=== PATIENT | female | born 1965 | race Caucasian/White ===

== ENCOUNTER 2016-06-26 07:08 | Observation (INO) | payer OTHER ==
[2016-06-26] MEDS ORDERED: NS 1,000 ML IV ONE (07:11)
[2016-06-26 07:45] LABS: % IMMATURE GRANULYOCYTES 0.3 % (0.0-1.1); ABSOLUTE IMMATURE GRANULOCYTES 0.02 10^3/uL (0.00-0.10); ADD DIFF? NO; ADD MORPH? NO; ADD SCAN? NO; ATYPICAL LYMPHOCYTE FLAG 10 (0-99); FRAGMENT RBC FLAG 0 (0-99); HEMATOCRIT 42.7 % (38.0-47.0); HEMOGLOBIN 15.1 g/dL (12.6-16.3); LEFT SHIFT FLG 0 (0-99); LIPEMIA HEMOLYSIS FLAG 90 (0-99); MEAN CELL HEMOGLOBIN CONCENTR. 35.4 g/dL (32.4-36.7); MEAN CELL VOLUME 98.8 fL (81.5-99.8); PLATELET CLUMPS FLAG 30 (0-99); PLATELET COUNT 233 10^3/uL (150-400); RED BLOOD CELL COUNT 4.32 10^6/uL (4.18-5.33); RED CELL DISTRIBUTION WIDTH 11.8 % (11.5-15.2)
--- NOTE | 2016-06-26 07:46 | CPEKG ---
Heart Rate: 73 RR Interval: 822 P-R Interval: 160 QRSD Interval: 104 QT Interval: 400 QTC Interval: 441 P [place]: 7 QRS [place]: 82 T Wave [place]: -16 EKG Severity - ABNORMAL ECG - EKG Impression: SINUS RHYTHM EKG Impression: ABNORMAL T, CONSIDER ISCHEMIA, ANTERIOR LEADS Electronically Signed By: Denton Hassan 26-Jun-2016 18:12:11
[2016-06-26 07:59] LABS: INR 0.98 (0.83-1.16); PROTIME(PATIENT) 12.9 SEC (12.0-15.0)
[2016-06-26 08:00] LABS: APTT 25.7 SEC (23.0-38.0)
[2016-06-26] MEDS ORDERED: BUPIVACAINE 0.5% 30 ML SDV ONE (08:11)
[2016-06-26] MEDS ORDERED: HEPARIN 10,000 UNIT/10 ML MDV ONE (08:11)
[2016-06-26] MEDS ORDERED: ISOPROTERENOL HCL 0.2 MG/ML 5ML AMP ONE (08:11)
[2016-06-26] MEDS ORDERED: LIDOCAINE 1% 30 ML SDV ONE (08:11)
[2016-06-26 08:21] LABS: ANION GAP 12 mEq/L (8-16); CALCIUM 9.4 mg/dL (8.5-10.4); CARBON DIOXIDE 22 mEq/l (22-31); CHLORIDE 110 mEq/L (97-110); CREATININE 0.9 mg/dL (0.6-1.0); GLOMERULAR FILTRATION RATE > 60; GLUCOSE 95 mg/dL (70-100); POTASSIUM 4.8 mEq/L (3.5-5.2); SODIUM 144 mEq/L (134-144)
[2016-06-26] MEDS ORDERED: MIDAZOLAM 2 MG/2 ML VIAL ONE (08:36)
[2016-06-26] MEDS ORDERED: fentaNYL 250 MCG/5 ML INJ ONE (08:37)
[2016-06-26] MEDS ORDERED: PROPOFOL/EMULSION 500 MG/50 ML BOTTLE IV ONE (08:37)
[2016-06-26] MEDS ORDERED: REMIFENTANIL HCL 1 MG VIAL ONE (08:43)
[2016-06-26] MEDS ORDERED: DEXAMETHASONE 4 MG/ML VIAL ONE (10:00)
[2016-06-26] MEDS ORDERED: PHENYLEPHRINE HCL 100 MCG/ML SYR ONE ×2 (10:00→10:51)
[2016-06-26] MEDS ORDERED: ROCURONIUM 50 MG/5 ML VIAL ONE ×3 (10:00→12:27)
[2016-06-26] MEDS ORDERED: PROPOFOL 200 MG/20 ML VIAL ONE (12:03)
[2016-06-26] MEDS ORDERED: ONDANSETRON 4 MG/2 ML VIAL IVP PRN (13:55)
[2016-06-26] MEDS ORDERED: ACETAMINOPHEN 325 MG TAB PO PRN (13:55)
[2016-06-26] MEDS ORDERED: IBUPROFEN 200 MG TAB PO PRN (13:56)
[2016-06-26] MEDS ORDERED: FAMOTIDINE 20 MG/NACL/50 ML BAG IV ONE (14:22)
[2016-06-26] MEDS ORDERED: FUROSEMIDE 20 MG/2 ML VIAL ONE (15:13)
[2016-06-26] MEDS ORDERED: FUROSEMIDE 40 MG/4 ML VIAL IVP ONE (15:30)
--- NOTE | 2016-06-26 15:53 | ECHO ---
[id number] + + [address] : : [place] [address] : : [phone] + Adult Echocardiographic Report + ----+ :Name: JESSE ROJAS Date: 06/26/2016 02:58 PM : : Hospital Admission Number: [id number] Location: [facility]: :: 1965 Gender: Female : :Age: 51 yrs Race: WH : :Reason For Study: Eval for Pericardial effusion and TR : + ----+ Doppler Measurements & Calculations TR max jenn: 398.2 cm/sec TR max P.4 mmHg Right Ventricle The right ventricle is moderate to severely dilated. The right ventricular systolic function is moderately reduced. Atria The right atrium is moderately dilated. Tricuspid Valve The tricuspid valve is normal in structure and function. There is moderate tricuspid regurgitation. Pericardium/Pleural There is no pericardial effusion. There is a fat pad seen. Conclusion This is a limited study to eval for pericardial effusion and TR. Limited views of the LV suggest normal systolic function The right ventricle is moderate to severely dilated. Moderately reduced RV systolic function The right atrium is moderately dilated. There is moderate tricuspid regurgitation. Moderate to severe pulmonary HTN, estimated at 64 mmHg plus RA pressure There is no pericardial effusion. No prior echo Final Reading Physician: Dr Allison Jara electronically signed on 06/26/2016 03:52 PM Ordering Physician: Alonzo Sparrow Performed By: Sherry Barrera
--- NOTE | 2016-06-26 16:14 | EPPROC ---
Electrophysiology Procedure Note: ELECTROPHYSIOLOGIC STUDY AND CATHETER MEDIATED ABLATION OF SLOW/FAST AV JOSE ENRIQUE REENTRY TACHYCARDIA PROCEDURES PERFORMED: 54157-47 EP evaluation with RA/RV/LA pace/record, with arrhythmia induction 23182-18 EP evaluation with RA/RV pace record, insert/reposition catheter, with arrhythmia induction 03713 Intracardiac catheter ablation, SVT arrhythmogenic focus 50532 3D mapping Fluoroscopy INDICATION: This is a 51 yr old female with episodes of SVT with which she was very symptomatic and had to go to the ER in [place] where she was converted with Adenosine. 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 Pt was offered medical management vs ablation. She chose to undergo Rf ablation for her SVT and hence the procedure was undertaken. PROCEDURE: Catheters & Anesthesia: The patient arrived in the Electrophysiology Laboratory in the fasting state. The right clavicular region, right groin, and left groin area were prepped and draped in the usual sterile manner. Anesthesiologist administered general anesthesia. Appropriate non-invasive blood pressure, pulse oximetry and end- tidal CO2 monitoring was established. All catheters were placed percutaneously using the modified Seldinger technique , and advanced into position under fluoroscopic guidance. One CRD2 catheter was advanced to the His-bundle position via the right femoral vein. . One #7 Green[place]ic deflectable catheter with 10 pairs of electrodes was placed via the right femoral vein into the coronary sinus. Heparin was given AVNRT was induced easily during rapid pacing. Ventricular extrastimuli delivered during tachycardia without altering antegrade His bundle activation did not advance next atrial potential, indicating that the tachycardia was not utilizing an accessory pathway for retrograde conduction. VA interval was -10 ms. Post entrainment of the tachycardia from the ventricle, there was VAHV response. VAV - TCL was 180ms Mapping of the right atrium and coronary sinus during AVNRT identified earliest atrial activation above the tendon of Priya at a level slightly posterior to the level of the His bundle, consistent with retrograde conduction over the fast AV jose enrique pathway. A #8 Green[place]ic deflectable quadrapolar electrode catheter (2mm-5mm-2mm spacing) with 4 mm tip electrode and sensor for the 3D mapping Carto system was advanced to the right atrium. 3 D mapping of the inter-atrial septum and coronary sinus was performed and location of the AV node was marked. RF applications were delivered to the region between the tricuspid annulus and the coronary sinus ostium, at the level of the upper edge of the coronary sinus ostium. Later lesions were given after advancing the catheter using SL3, SL2 and then Agilis sheath. Later the catheter was changed to Cryocath and further lesions were given. Intermittently induciton was attempted and we could induce AT at rates of 440ms and rapid AT at 310ms. However, with these her original SVT was not induced. Radiofrequency applications and cryo lesions were administered from within CS, roof of CS all the way to 1 mm below the His. A line from CS os to IVC was also created. Junctional rhythm occurred during many of the RF applications. The catheters were removed. The long sheath was changed to a short 9 Fr sheath. The patient was transferred to the cardiovascular holding area in stable condition. Vascular access sheaths were removed in the holding area. There were no apparent complications. Results: SCL 760ms AVWB 380ms TCL 360ms VA during SVT -10ms VA during SR 140ms CONCLUSIONS * AV jose enrique reentrant tachycardia using the slow AV jose enrique pathway for antegrade conduction and the fast AV jose enrique pathway for retrograde conduction. (Slow/fast AVNRT). * Ablation of the slow AV jose enrique pathway using RF and Cryocatheter. Multiple long sheaths were used for better support. * Multiple AT inducible ?due to RV dilatation and scarring in the RA/RV * No complications.
[2016-06-26 16:42] LABS: ANION GAP 10 mEq/L (8-16); CALCIUM 8.6 mg/dL (8.5-10.4); CARBON DIOXIDE 24 mEq/l (22-31); CHLORIDE 109 mEq/L (97-110); CREATININE 0.9 mg/dL (0.6-1.0); GLOMERULAR FILTRATION RATE > 60; GLUCOSE 131 mg/dL (70-100); MAGNESIUM 1.8 mg/dL (1.6-2.3); POTASSIUM 5.8 mEq/L (3.5-5.2); SODIUM 143 mEq/L (134-144)
[2016-06-26] MEDS: OXYCODONE/APAP 5/325 TAB PO PRN ×3 (17:20→22:12)
[2016-06-27] MEDS: OXYCODONE/APAP 5/325 TAB PO PRN ×2 (02:31→13:25)
[2016-06-27 04:58] LABS: % IMMATURE GRANULYOCYTES 0.3 % (0.0-1.1); ABSOLUTE IMMATURE GRANULOCYTES 0.03 10^3/uL (0.00-0.10); ADD DIFF? NO; ADD MORPH? NO; ADD SCAN? NO; ATYPICAL LYMPHOCYTE FLAG 0 (0-99); FRAGMENT RBC FLAG 0 (0-99); HEMATOCRIT 36.7 % (38.0-47.0); HEMOGLOBIN 12.7 g/dL (12.6-16.3); LEFT SHIFT FLG 0 (0-99); LIPEMIA HEMOLYSIS FLAG 90 (0-99); MEAN CELL HEMOGLOBIN 35.4 pg (27.9-34.1); MEAN CELL HEMOGLOBIN CONCENTR. 34.6 g/dL (32.4-36.7); MEAN CELL VOLUME 102.2 fL (81.5-99.8); MEAN PLATELET VOLUME 10.3 fL (8.7-11.7); PLATELET CLUMPS FLAG 10 (0-99); PLATELET COUNT 184 10^3/uL (150-400); RED BLOOD CELL COUNT 3.59 10^6/uL (4.18-5.33); RED CELL DISTRIBUTION WIDTH 11.9 % (11.5-15.2)
[2016-06-27 05:02] LABS: INR 1.09 (0.83-1.16)
[2016-06-27 05:16] LABS: ANION GAP 6 mEq/L (8-16); CALCIUM 8.9 mg/dL (8.5-10.4); CARBON DIOXIDE 27 mEq/l (22-31); CHLORIDE 105 mEq/L (97-110); CREATININE 1.1 mg/dL (0.6-1.0); GLOMERULAR FILTRATION RATE 52; GLUCOSE 119 mg/dL (70-100); POTASSIUM 5.5 mEq/L (3.5-5.2); SODIUM 138 mEq/L (134-144)
[2016-06-27 05:23] LABS: TROPONIN I 0.532 ng/mL (0-0.034)
[2016-06-27 05:25] LABS: CK-MB INTERPRETATION NEGATIVE (NEGATIVE); CREATINE KINASE-MB FRACTION 3.92 ng/mL (0-3.19)
[2016-06-27] MEDS ORDERED: lamoTRIgine 100 MG TAB PO SCH (09:00)
[2016-06-27] MEDS ORDERED: NON-FORMULARY NEW DRUG (Multivitamin With Minerals [Multiple Vitamin] 1 EACH) PO SCH (09:00)
[2016-06-27] MEDS ORDERED: LOSARTAN POTASSIUM 50 MG TAB PO SCH (09:00)
[2016-06-27] MEDS ORDERED: NON-FORMULARY NEW DRUG (Losartan Potassium [Cozaar] 100 MG) PO SCH (09:00)
[2016-06-27] MEDS ORDERED: MULTIVITAMINS W-MINERALS 1 EACH TAB PO SCH (09:00)
[2016-06-27] MEDS ORDERED: ASPIRIN 325 MG TAB PO SCH (09:00)
[2016-06-27] MEDS ORDERED: TORSEMIDE 20 MG TAB PO SCH (09:00)
--- NOTE | 2016-06-27 09:19 | CPEKG ---
Heart Rate: 72 RR Interval: 833 P-R Interval: 168 QRSD Interval: 94 QT Interval: 400 QTC Interval: 438 P [place]: 71 QRS [place]: 92 T Wave [place]: -21 EKG Severity - OTHERWISE NORMAL ECG - EKG Impression: SINUS RHYTHM EKG Impression: BORDERLINE RIGHT AXIS DEVIATION Electronically Signed By: Denton Hassan 27-Jun-2016 19:21:08
--- NOTE | 2016-06-27 10:53 | ECHO ---
[id number] [id number] + + [address] : : [place] [address] : : [phone] + + Adult Echocardiographic Report + ----+ :Name: JESSE ROJASudy Date: 06/27/2016 07:52 AM : : Hospital Admission Number: [id number] Location: 216: :: 1965 Gender: Female Height: 69 in : :Age: 51 yrs Race: WH Weight: 201 lb : :Reason For Study: Post EP : : BSA: 2.1 meters2 : + ----+ MMode/2D Measurements & Calculations IVSd: 1.1 cm RVDd: 5.3 cm FS: 40.8 % LVOT diam: 1.9 cm LVPWd: 0.96 cm LVIDd: 5.3 cm EDV(Teich): 133.6 ml LVOT area: 2.8 cm2 LVIDs: 3.1 cm ESV(Teich): 38.6 ml EF(Teich): 71.1 % Normal Measurement Values: + + :LVIDd (3.5-5.7cm) IVSd (0.6-1.1cm) LVPWd (0.6-1.1cm) Aortic Root (2.0-3.7cm)Left Atrium (1.5-4.0cm): :LV Vol(d) (76-115ml) LV Vol(s) (29-48ml) Ejec Fraction (50-65%)PV Clark (0.6- 1.2m/s) TV Clark (0.4-1.0m/s) : :MV E Clark (0.8-1.0m/s)MV A Clark (0.3-1.0m/s)LVOT Clark (0.7-1.2m/s) Asc Ao Clark ( 0.9-1.8m/s) : + + Doppler Measurements & Calculations MV E max clark: MV V2 max: Ao V2 max: LV V1 mean P.9 cm/sec 78.2 cm/sec 115.1 cm/sec 1.7 mmHg MV A max clark: MV max PG: Ao max P.3 mmHg LV V1 mean: 70.1 cm/sec 2.4 mmHg Ao mean P.8 mmHg60.1 cm/sec MV E/A: 0.65 MV V2 mean: Ao V2 mean: LV V1 VTI: 18.0 cm MV dec time: 43.9 cm/sec 104.8 cm/sec 0.29 sec MV mean PG: Ao V2 VTI: 28.4 cm 0.87 mmHg KATHARINE(I,D): 1.8 cm2 MV V2 VTI: 22.1 cm MVA(VTI): 2.3 cm2 SV(LVOT): 50.0 ml PA V2 max: PI end-d clark: TR max clark: 82.7 cm/sec 147.6 cm/sec 401.2 cm/sec PA max PG: TR max P.7 mmHg 64.4 mmHg RAP systole: 10.0 mmHg RVSP(TR): 74.4 mmHg Left Ventricle The left ventricle is normal in size and function. There is normal left ventricular wall thickness. Ejection Fraction = 60-65%. There is Doppler evidence for diastolic dysfunction. Flattened septum is consistent with RV pressure/volume overload. Right Ventricle The right ventricle is moderate to severely dilated. The right ventricular systolic function is moderately reduced. Atria The left atrial size is normal. The right atrium is moderately dilated. Mitral Valve The mitral valve is normal in structure and function. There is no mitral valve stenosis. There is trace mitral regurgitation. Tricuspid Valve The tricuspid valve is normal in structure and function. There is no tricuspid stenosis. There is moderate to severe tricuspid regurgitation. Right ventricular systolic pressure is 74.4mmHg. There is Doppler evidence for severe pulmonary hypertension. Aortic Valve The aortic valve is normal in structure and function. There is no aortic stenosis. Trace aortic regurgitation. Pulmonic Valve The pulmonic valve is normal in structure and function. There is no pulmonic valvular stenosis. Mild to moderate pulmonic valvular regurgitation. Great Vessels The aortic root is normal size. Pericardium/Pleural There is no pericardial effusion. There is a fat pad seen. Conclusion A complete two-dimensional transthoracic echocardiogram was performed (2D, M-mode, Doppler and color flow Doppler). The left ventricle is normal in size and function. Ejection Fraction = 60-65%. There is Doppler evidence for diastolic dysfunction. Flattened septum is consistent with RV pressure/volume overload. The right ventricle is moderate to severely dilated. Moderately reduced RV systolic function The right atrium is moderately dilated. There is trace mitral regurgitation. There is moderate to severe tricuspid regurgitation. Right ventricular systolic pressure is 74.4mmHg. There is Doppler evidence for severe pulmonary hypertension. The aortic valve is normal in structure and function. Trace aortic regurgitation. Mild to moderate pulmonic valvular regurgitation. There is no pericardial effusion. Final Reading Physician: Dr Allison Jara electronically signed on 06/27/2016 10:52 AM Ordering Physician: Alonzo Sparrow Performed By: Sherry Barrera
[2016-06-27 11:17] VITALS: PULSE 62; RESP 16; TEMP 97.6; O2SAT 96
[2016-06-27] MEDS ORDERED: PNEUMOCOCCAL 0.5ML VACCINE VIAL IM ONE (11:19)
[2016-06-27] MEDS ORDERED: FLU VACC QS 2016-17(3-64YR)/PF 0.5 ML SYR (FLUARIX QUAD) IM ONE (11:19)
[2016-06-27] MEDS ORDERED: FUROSEMIDE 20 MG/2 ML VIAL IVP ONE (11:40)
[2016-06-27 12:01] VITALS: BP 119/72
--- NOTE | 2016-06-27 18:40 | GDS ---
[f rep st] DISCHARGE SUMMARY ADMISSION DIAGNOSES: 1. Paroxysmal supraventricular tachycardia. 2. Pulmonary hypertension. 3. Hypertension. 4. Bipolar disorder. 5. Nocturnal hypoxia. DISCHARGE DIAGNOSES: 1. Paroxysmal supraventricular tachycardia, status post electrophysiology with ablation for AVNRT. 2. Hypertension. 3. Pulmonary hypertension. 4. Bipolar disorder. 5. Nocturnal hypoxia. PROCEDURES DONE DURING HOSPITALIZATION: 1. Echocardiogram. 2. Electrocardiogram. 3. Electrophysiology study. 4. Ablation using both RF and cryo catheter for AVNRT ablation. BRIEF HISTORY: Please see H and P. Ms. Stephen is a 51-year-old female who was recently diagnosed wi th pulmonary artery hypertension with noted RVSP at 64. She was being worked up by Pulmonology. She had been started on nocturnal oxygen. While visiting family in May over [place] in [place], uli biggs developed a palpitation with dyspnea that occurred on and off for 1 week. She went to the emergenc y department with increase in palpitations. She was found to be in supraventricular tachycardia, for which adenosine was given to converted back to sinus rhythm. Returning, she came to [place] and uli biggs came to establish care with Dr. Sparrow, who evaluated her, reviewed strips from [place], and felt that she would be an appropriate candidate to undergo EP procedure, with consideration of ablation. HOSPITAL COURSE: Patient was admitted through the CVC, prepped for procedure. There, she went taken to the electrophysiology lab where EP procedure was done. Accessory pathway was found. There, Dr. Sparrow ablated for slow AVNRT. No apparent complications. She was taken back to the CVC and ultimatel y to the PCU for overnight observation. She was noted to have 1 episode of 1 small run of atrial tac hycardia throughout the night, but no SVT. She reports no chest pain or pressure, does report she aldana s had a stiff back. Total procedure time was 5 hours and was probably due to musculoskeletal pain. The pain is relieved by Percocet. It was noted that she maintains oxygen saturation of 90% when at r est, but quickly drops it. She did receive her usual home dose of torsemide and also an IV bolus of Lasix this morning, which did improve her symptoms, but still with exertion she does continue to drop her saturations down to 84%, she remains asymptomatic. She did undergo echocardiogram this morning, showing no pericardial effusion, but elevated pulmonary pressures with RVSP estimated at 74 mmHg. E jection fraction was noted to be normal with LVEF at 60% to 65%. It was noted that she did have a fl attened RV septum; hence, diuretic therapy this morning. At the current time, she denies any chest p ain or pressure, denies any further episodes of palpitations, no other arrhythmias noted except atria l tachycardia as mentioned above. Her lungs are clear to auscultation, no jugular vein distention an d no signs of heart failure. Patient has been offered to stay another night, but does want to go [place]. We are organizing her to be able to use her oxygen with exertion at this time, noting that when s he walks she drops her oxygen level down to 84%, but after retesting her on 2 L nasal cannula, she is able to maintain saturation at 96%. PHYSICAL EXAMINATION: Done at this time: GENERAL APPEARANCE: Medium built, well-groomed, mildly ob marcio, female. She is alert, oriented to person, place, time, and situation. Appears to be under no acute distress. VITAL SIGNS: blood pressure 119/72, heart rate 62 beats per minute. Respir ations are 92% at rest on room air, 96% on 2 L nasal cannula with exertion, without oxygen therapy Sp O2 is 84%. Temperature of 36.4 degrees Celsius. HEENT: Head is normocephalic. Lips and tongue are pink and moist with no signs of cyanosis, conjunctivae pink. NECK: Trachea is midline, +2 carotid pulses bilateral. No auscultated bruits. No jugular vein distention. RESPIRATORY: Lungs clear. N o rhonchi, rales or wheezes, accessory muscle use or intercostal muscle retraction noted. CARDIAC: Regular rate, regular rhythm, S1, S2, +1 to 2 systolic murmur on left sternal border. ABDOMEN: Soft , nontender, bowel sounds x4 quadrants. No organomegaly, no palpable masses. SKIN: [place], warm, dry . No cyanosis, no clubbing. No peripheral edema. VASCULAR: +2 carotids bilateral, +2 radials bila teral, +1 dorsal pedal and posterior tibial pulses bilateral. Catheter insertion site, right groin s ite, no redness swelling drainage ecchymosis or hematoma. No auscultated bruit. CMS checks to the r ight lower extremity within normal limits. Neuro checks, cranial nerves 2-12 grossly intact. LABORATORY STUDIES: Laboratory studies today show WBC of 10.0, hemoglobin 12.7, hematocrit 36.7, lakisha telet count 184. INR is 1.09. Sodium 138, potassium 5.5 before diuretics, chloride 105, CO2 of 27, BUN 21, creatinine 1.1, glucose 119, calcium 8.9. Cardiac enzymes noted post electrophysiology proce dure yesterday magnesium was 1.8. Today cardiac enzymes CK 126, CK-MB fraction 3.92, CK-MB percentag e is 3.1, and troponin was 0.532, expected to have elevated cardiac markers post ablation. STUDIES: Electrophysiology and ablation procedure done as noted above. Electrocardiogram done this morning shows sinus rhythm with inverted T-waves in V1 through V3 and inferior leads. This is unchan ged from her initial electrocardiogram. Echocardiogram done this morning shows LV is normal size and function with EF of 60% to 65%, diastoli c dysfunction, flattened septum RV consistent with pressure overload, RV is moderately to severely di lated, moderately reduced RV systolic function. RA is moderately dilated. Trace MR, moderate to sev ere TR, RVSP at 74.4 mmHg. Trace AI, mild to moderate PI, no pericardial effusion. DISCHARGE DISPOSITION: Patient will be discharged home in fair condition. She is under activity res trictions to not lift more than 10 pounds for the next week and no strenuous activity for the next 2 weeks. DISCHARGE MEDICATIONS: Please see discharge medication reconciliation sheet. Note, that the patient will continue on all same home medications and she has had aspirin therapy added to her regimen. Du e to recent electrophysiology study, it does place her at higher risk for thrombotic event. She will remain on aspirin for the next 6 weeks. Also note that we have made changes to her oxygen therapy s o she may use it with exertion during the day also, and continue using it at night. DISCHARGE INSTRUCTIONS: Post electrophysiology ambulation discharge instructions went over with the patient, including monitoring for signs of infection, bleeding precautions, activity restrictions, an d medication compliance. The patient has been asked that for every 35-45 minutes sitting she get up and walk 5-10 minutes. She has been encouraged to continue using incentive spirometer over the next 2 days. Oxygen therapy as stated above. The patient has been asked to follow up with her application infrastructure engineer in the next 1-2 weeks. She does have a followup appointment with Dr. Sparrow on July 25. She was noted to be mildly hyperkalemic with po tassium at 5.5 today. She was asked to have repeat basic metabolic panel done next Thursday. At the time of discharge, the patient and her daughter both verbalized understanding of all discharge instru ctions. They have been told that if they have any problems or concerns once discharged, they may call our office or return to the hospital. Total time spent on discharge greater than 30 minutes. /[id number]/MODL
--- NOTE | 2016-07-02 08:58 | CPEKG ---
Heart Rate: 64 RR Interval: 938 P-R Interval: 152 QRSD Interval: 104 QT Interval: 424 QTC Interval: 438 P [place]: 54 QRS [place]: 102 T Wave [place]: -7 EKG Severity - ABNORMAL ECG - EKG Impression: SINUS RHYTHM EKG Impression: RIGHT AXIS DEVIATION EKG Impression: REPOL ABNRM, PROBABLE ISCHEMIA, ANTERIOR LDS Electronically Signed By: Gina Roberts 02-Jul-2016 09:47:14
== END 2016-06-27 17:44 | disposition home or self-care (01) ==
LOC: FCATH 07:08 → F2W 13:55
PROVIDERS: ADMIT Internal Medicine Cardiovascular Disease; ATTEND Internal Medicine Cardiovascular Disease
PROC: 02583ZZ Destruction of Conduction Mechanism, Percutaneous Approach (ICD-10-PCS; principal; 2016-06-26)
PROC: 02K83ZZ Map Conduction Mechanism, Percutaneous Approach (ICD-10-PCS; principal; 2016-06-26)
PROC: 4A0234Z Measurement of Cardiac Electrical Activity, Percutaneous Approach (ICD-10-PCS; principal; 2016-06-26)
DX: I47.1 Supraventricular tachycardia (principal); I27.2 Other secondary pulmonary hypertension; I10 Essential (primary) hypertension; F31.9 Bipolar disorder, unspecified; R09.02 Hypoxemia; Z23 Encounter for immunization
CPT/HCPCS: C1730; C1732; C1733; C1766; C1893; G0008; G0009; G0378; J1100; J1644; J2250; J2370; J2704; J3010

== ENCOUNTER 2017-03-06 06:38 | Observation (INO) | payer OTHER ==
[2017-03-06] MEDS ORDERED: NS 1,000 ML IV ONE (06:42)
[2017-03-06] MEDS ORDERED: ASPIRIN EC 325 MG TAB PO ONE ×2 (06:42→07:00)
[2017-03-06] MEDS ORDERED: FAMOTIDINE 20 MG TAB PO ONE (06:42)
[2017-03-06] MEDS ORDERED: diphenhydrAMINE 25 MG CAP PO ONE ×2 (06:42→07:00)
[2017-03-06] MEDS ORDERED: DIAZEPAM 5 MG TAB PO ONE (06:42)
--- NOTE | 2017-03-06 06:58 | CPEKG ---
Heart Rate: 71 RR Interval: 845 P-R Interval: 172 QRSD Interval: 104 QT Interval: 488 QTC Interval: 531 P [place]: 1 QRS [place]: 110 T Wave [place]: -32 EKG Severity - ABNORMAL ECG - EKG Impression: SINUS RHYTHM EKG Impression: RIGHT AXIS DEVIATION EKG Impression: ABNORMAL T, CONSIDER ISCHEMIA, DIFFUSE LEADS EKG Impression: PROLONGED QT INTERVAL Electronically Signed By: Rony Tong 06-Mar-2017 10:10:23
[2017-03-06] MEDS ORDERED: FAMOTIDINE 20 MG TAB ONE (07:00)
[2017-03-06] MEDS ORDERED: DIAZEPAM 5 MG TAB ONE (07:01)
[2017-03-06 07:16] LABS: % IMMATURE GRANULYOCYTES 0.4 % (0.0-1.1); ABSOLUTE IMMATURE GRANULOCYTES 0.03 10^3/uL (0.00-0.10); ADD DIFF? NO; ADD MORPH? NO; ADD SCAN? NO; ATYPICAL LYMPHOCYTE FLAG 0 (0-99); FRAGMENT RBC FLAG 0 (0-99); HEMATOCRIT 42.3 % (38.0-47.0); HEMOGLOBIN 14.7 g/dL (12.6-16.3); LEFT SHIFT FLG 0 (0-99); LIPEMIA HEMOLYSIS FLAG 90 (0-99); MEAN CELL HEMOGLOBIN 33.9 pg (27.9-34.1); MEAN CELL HEMOGLOBIN CONCENTR. 34.8 g/dL (32.4-36.7); MEAN CELL VOLUME 97.7 fL (81.5-99.8); MEAN PLATELET VOLUME 9.9 fL (8.7-11.7); PLATELET CLUMPS FLAG 0 (0-99); PLATELET COUNT 274 10^3/uL (150-400); RED BLOOD CELL COUNT 4.33 10^6/uL (4.18-5.33); RED CELL DISTRIBUTION WIDTH 11.6 % (11.5-15.2)
[2017-03-06 07:26] LABS: INR 0.99 (0.83-1.16)
[2017-03-06 07:52] LABS: ANION GAP 16 mEq/L (8-16); CALCIUM 9.7 mg/dL (8.5-10.4); CARBON DIOXIDE 21 mEq/l (22-31); CHLORIDE 100 mEq/L (97-110); CHOLESTEROL 269 mg/dL (140-220); CREATININE 1.3 mg/dL (0.6-1.0); GLOMERULAR FILTRATION RATE 43; GLUCOSE 101 mg/dL (70-100); HIGH DENSITY LIPOPROTEIN 42 mg/dL (40-85); MAGNESIUM 2.3 mg/dL (1.6-2.3); NON-HIGH DENSITY LIPOPROTEIN 227 mg/dL (90-129); POTASSIUM 3.7 mEq/L (3.5-5.2); SODIUM 137 mEq/L (134-144)
[2017-03-06 07:55] LABS: TRIGLYCERIDE 476 mg/dL (35-135)
[2017-03-06] MEDS ORDERED: MIDAZOLAM 2 MG/2 ML VIAL ONE ×2 (07:55→10:47)
[2017-03-06] MEDS ORDERED: fentaNYL 100 MCG/2 ML INJ ONE (07:55)
[2017-03-06] MEDS ORDERED: LIDOCAINE 1% 300 MG/30 ML SDV ONE (07:55)
[2017-03-06] MEDS ORDERED: IOPAMIDOL (ISOVUE-370) 150 ML BTL IV ONE ×2 (07:56→10:59)
--- NOTE | 2017-03-06 09:19 | PDHPUP ---
History & Physical Update H&P update statement: This history and physical update is based on an assessment of the patient which was completed after admission or registration (within 24 hours), but prior to the surgery/procedure. H&P update: H&P reviewed & patient examined, no change in patient's condition since H&P completed
--- NOTE | 2017-03-06 09:20 | PDPROPOC ---
Sedation Plan of Care Sedation Plan of Care: vital signs stable, mental status noted, patient educated of risks, benefits, alternatives, patient can tolerate sedation ASA Classification: ASA 2 Planned drugs: fentanyl, midazolam Mallampati Score: Class 2 Mallampati Reference Image: Patient passed 3-3-2 rule?: Yes
[2017-03-06] MEDS ORDERED: ADENOSINE 90 MG/30 ML VIAL IV ONE ×2 (09:53→10:39)
[2017-03-06] MEDS ORDERED: BIVALIRUDIN 250 MG/5 ML VIAL IV ONE (10:32)
[2017-03-06] MEDS ORDERED: NITROGLYCERIN 1,500 MCG/15 ML VIAL MISC ONE (10:54)
[2017-03-06] MEDS ORDERED: CLOPIDOGREL BISULFATE 75 MG TAB ONE (11:05)
[2017-03-06] MEDS ORDERED: ATROPINE SULFATE 1 MG/10 ML SYR ONE (11:29)
[2017-03-06] MEDS ORDERED: TEMAZEPAM 15 MG CAP PO PRN (11:34)
[2017-03-06] MEDS ORDERED: ATROPINE SULFATE 1 MG/10 ML SYR IVP PRN (11:34)
[2017-03-06] MEDS ORDERED: NITROGLYCERIN 0.4 MG BTL SL PRN (11:34)
[2017-03-06] MEDS ORDERED: ONDANSETRON 4 MG/2 ML VIAL IVP PRN (11:34)
[2017-03-06] MEDS: OXYCODONE/APAP 5/325 TAB PO PRN ×2 (12:04→17:26)
--- NOTE | 2017-03-06 12:13 | CPEKG ---
Heart Rate: 66 RR Interval: 909 P-R Interval: 188 QRSD Interval: 108 QT Interval: 444 QTC Interval: 466 P [place]: 32 QRS [place]: 103 T Wave [place]: -46 EKG Severity - ABNORMAL ECG - EKG Impression: SINUS RHYTHM EKG Impression: PROBABLE RVH W/ SECONDARY REPOL ABNORMALITY EKG Impression: cannot rule out ischemia Electronically Signed By: Rony Tong 06-Mar-2017 13:11:34
--- NOTE | 2017-03-06 12:24 | CPIP ---
[f rep st] INVASIVE CARDIAC PROCEDURE DATE OF PROCEDURE: 03/06/2017 PROCEDURES: 1. Coronary angiography. 2. Left ventriculography. 3. Stenting of left anterior descending coronary artery with Synergy drug-eluting stent. 4. FFR of left anterior descending coronary artery. 5. Right heart catheterization. 6. Adenosine challenge. INDICATION: 1. Dyspnea on exertion concerning for potential anginal equivalent. 2. Pulmonary hypertension. ACCESS: Patient was prepped and draped in sterile fashion. 1% lidocaine was used to anesthetize the right inguinal region. A 6-Montenegrin introducer sheath was placed selectively into the right common fe moral artery via modified Seldinger technique. A 7-Montenegrin introducer sheath was placed selectively i nto the right common femoral vein via modified Seldinger technique. CORONARY ANGIOGRAPHY: A 6-Montenegrin JL4 was advanced to the left main coronary artery, and images obtai marco. The left main coronary artery bifurcated into an LAD and circumflex coronary arteries. The lef t main coronary artery appeared normal. The left anterior descending coronary artery gave rise to 3 diagonal branches. The left anterior descending coronary artery had intermediate grade lesion in the midvessel. The stenosis appeared to be 60% to 70% by angiography. The diagonals were free of any s ignificant disease. The circumflex coronary artery gave rise to 3 OM branches. The circumflex coron adrián artery and its complement of OM branches appeared normal. A 6-Montenegrin JR4 was advanced to the rig ht coronary artery, and images obtained. The right coronary artery was dominant. The right coronary artery appeared normal. LEFT VENTRICULOGRAPHY: A 6-Montenegrin pigtail catheter was advanced in the left ventricle, and images ob tained. Left ventricle was normal in size with an estimated ejection fraction of 55%. The mid anter ior wall appeared to be hypokinetic. FFR OF THE LEFT ANTERIOR DESCENDING CORONARY ARTERY: A 6-Montenegrin JL4.5 catheter was advanced to the l eft main coronary artery, and images obtained. Angiography confirmed the presence of an intermediate grade lesion involving the mid left anterior descending coronary artery. An FFR wire was placed in the distal vessel, and position verified by angiography. FFR was performed after injection of IV judit nosine. The FFR decreased to 0.79, indicating flow limitation. PERCUTANEOUS CORONARY INTERVENTION OF THE LEFT ANTERIOR DESCENDING CORONARY ARTERY: A 2.5 x 16 Syner gy drug-eluting stent was placed across the lesion and deployed. Followup angiography demonstrated i ncomplete stent expansion in the midportion of the stent and ATILIO 3 flow. A 2.5 x 8 noncompliant stephen loon was then taken to the mid stent and deployed. Followup angiography demonstrated ATILIO 3 flow wit h no residual stenosis. RIGHT HEART CATHETERIZATION: Right heart catheter was advanced in the right atrium, and pressure obt ained. The right atrial pressure was 12 mmHg. The catheter was then advanced in the right ventricle , and pressure obtained. The right ventricular pressure was 63/12 mmHg. The catheter was then advan rere into the pulmonary artery, and pressure obtained. The pulmonary artery pressure was 68/15 mmHg w ith a mean pulmonary artery pressure of 41 mmHg. The catheter was then advanced to the wedge positio n, and pressure obtained. The pulmonary capillary wedge pressure was 12 mmHg. The pulmonary artery saturation was 70.9. The aortic saturation was 95. Cardiac output was 3.98. Cardiac index was 1.93 . Pulmonary vascular resistance was 17.13. ADENOSINE CHALLENGE: The patient was given incremental doses of adenosine up to 200 mcg of adenosine with pressure and cardiac output measured. At 100 mcg of adenosine, the pulmonary artery pressure w as 54/23 with a mean pulmonary artery pressure of 36 mmHg. The pulmonary capillary wedge pressure wa s 11 mmHg. At 150 mcg of adenosine, the pulmonary artery pressure was 59/26 with a mean pulmonary ar viktoria pressure of 40 mmHg. The pulmonary capillary wedge pressure was 12 mmHg. At 200 mcg of adenosi ne, the pulmonary artery pressure was 58/26 mmHg with a mean pulmonary artery pressure of 38 mmHg. T he pulmonary capillary wedge pressure was 11. The cardiac output at 200 mcg of adenosine was 8.76. The cardiac index was 4.29. The pulmonary vascular resistance was 10.54. COMPLICATIONS: None. CONCLUSIONS: 1. Single-vessel coronary artery disease involving the left anterior descending coronary artery. 2. Normal left ventricular systolic function. 3. Status post successful stenting of the left anterior descending coronary artery with Synergy drug -eluting stent. 4. Pulmonary hypertension with a mean pulmonary artery pressure of 41 mmHg with no significant respo nse to adenosine challenge. /[id number]/MODL
[2017-03-06] MEDS: LORazepam 2 MG/ML INJ IVP PRN ×2 (12:35→23:19)
[2017-03-06] MEDS ORDERED: lamoTRIgine 100 MG TAB PO SCH (21:00)
[2017-03-07 03:42] VITALS: BP 111/76; PULSE 61; RESP 18; TEMP 97.9; O2SAT 98
[2017-03-07 05:23] LABS: % IMMATURE GRANULYOCYTES 0.6 % (0.0-1.1); ABSOLUTE IMMATURE GRANULOCYTES 0.05 10^3/uL (0.00-0.10); ADD DIFF? NO; ADD MORPH? NO; ADD SCAN? NO; ATYPICAL LYMPHOCYTE FLAG 10 (0-99); FRAGMENT RBC FLAG 0 (0-99); HEMATOCRIT 36.6 % (38.0-47.0); HEMOGLOBIN 12.6 g/dL (12.6-16.3); LEFT SHIFT FLG 0 (0-99); LIPEMIA HEMOLYSIS FLAG 90 (0-99); MEAN CELL HEMOGLOBIN 34.6 pg (27.9-34.1); MEAN CELL HEMOGLOBIN CONCENTR. 34.4 g/dL (32.4-36.7); MEAN CELL VOLUME 100.5 fL (81.5-99.8); MEAN PLATELET VOLUME 10.1 fL (8.7-11.7); PLATELET CLUMPS FLAG 0 (0-99); PLATELET COUNT 226 10^3/uL (150-400); RED BLOOD CELL COUNT 3.64 10^6/uL (4.18-5.33); RED CELL DISTRIBUTION WIDTH 11.8 % (11.5-15.2)
--- NOTE | 2017-03-07 05:30 | CPEKG ---
Heart Rate: 54 RR Interval: 1111 P-R Interval: 192 QRSD Interval: 102 QT Interval: 456 QTC Interval: 433 P [place]: 68 QRS [place]: 106 T Wave [place]: -55 EKG Severity - ABNORMAL ECG - EKG Impression: SINUS RHYTHM EKG Impression: RIGHT AXIS DEVIATION EKG Impression: ABNORMAL T, CONSIDER ISCHEMIA, DIFFUSE LEADS Electronically Signed By: Rony Tong 07-Mar-2017 09:11:28
[2017-03-07 05:47] LABS: ANION GAP 10 mEq/L (8-16); CALCIUM 9.6 mg/dL (8.5-10.4); CARBON DIOXIDE 24 mEq/l (22-31); CHLORIDE 101 mEq/L (97-110); CREATININE 1.1 mg/dL (0.6-1.0); GLOMERULAR FILTRATION RATE 52; GLUCOSE 87 mg/dL (70-100); POTASSIUM 4.5 mEq/L (3.5-5.2); SODIUM 135 mEq/L (134-144)
[2017-03-07] MEDS ORDERED: FLU VACC QS 2017-18 (3YR+)/PF 0.5 ML SYR (FLUARIX QUAD) IM ONE (08:35)
[2017-03-07] MEDS ORDERED: CLOPIDOGREL BISULFATE 75 MG TAB PO SCH (09:00)
[2017-03-07] MEDS ORDERED: LOSARTAN POTASSIUM 50 MG TAB PO SCH (09:00)
[2017-03-07] MEDS ORDERED: ASPIRIN EC 325 MG TAB PO SCH (09:00)
[2017-03-07] MEDS ORDERED: ATORVASTATIN CALCIUM 40 MG TAB PO SCH (11:15)
[2017-03-07] MEDS: OXYCODONE/APAP 5/325 TAB PO PRN (12:17)
--- NOTE | 2017-03-07 12:57 | ASDISCHSUM ---
Discharge Information Plan Status:Home with No Needs Medically Cleared to Leave:03/07/2017 Discharge Date:03/07/2017 12:22 PM CM D/C Disposition:Home, Routine, Self-Care ADT D/C Disposition:Home, Routine, Self-Care Projected Discharge Date:03/07/2017 12:22 PM Transportation at D/C:Family Discharge Delay Reason: Follow-Up Date:03/07/2017 12:22 PM Discharge Slot: Final Diagnosis:R heart cath, stents to LAD, CAD, dyspnea on exertion, pulm HTN Placement Information Patient Contact Information Contact Name:RODRICK Relationship:Father Address:[address] City:[place] Alternate Phone: State/Zip Code:[place] [address] Email: Financial Information Financial Class:[facility] Primary Plan Desc:ADA BELLO Primary Plan Number:[id number] Secondary Plan Desc: Secondary Plan Number: Assessment Information [facility] CM Progress Note CM Note CM Note Notes: Reviewed chart re:d/c poc, pt's progress. Pt admitted w/ dyspnea on exertion, pulm HTN, CAD; s/p right heart cath w/ stents to LAD. Pt to discharge home independently today w/ family support and no identified needs. CM avail for any further issues or concerns. Date Signed: 03/07/2017 12:56 PM Electronically Signed By:Lauren Tucker RN Intervention Information
--- NOTE | 2017-03-09 09:57 | GDS ---
[f rep st] DISCHARGE SUMMARY ADMIT DIAGNOSES: 1. Fatigue. 2. Congestive heart failure. 3. Pulmonary hypertension. 4. Planned cardiac angiogram. DISCHARGE DIAGNOSES: 1. Status post cardiac angiogram. 2. Stent to the left anterior descending, fractional flow reserve to the left anterior descending. 3. Pulmonary hypertension. 4. Congestive heart failure. HOSPITAL COURSE: This nice lady has been seen in clinic by Dr. Kirby. She was seen on February 26, 2017, for new congestive heart failure symptoms. She was found to have pulmonary hypertension on ec ho, and class [address] [place] [employer] [address] Kirby recommended cardiac angiogram with [facility] right and left heart caths to evaluate for possible obstructive coronary artery disease and to vaishnavi luate the degree of her pulmonary hypertension. At that visit, he did increase Demadex, started her on Aldactone, with plan to re-evaluate after the cardiac angiogram. Dr. Naren Chacko did take her to the cardiac systems testing laboratory technician where he found an obstruction in the LAD of 70%. He did complete the evaluation with FFR. Additionally, he did an adenosine challenge test while evaluating her pulmonary hypertens ion. At maximal incremental injections of adenosine using 200 mcg of adenosine, the pulmonary artery pressure was 58/26 mmHg and a mean pulmonary artery pressure of 38 mmHg. The pulmonary capillary we dge pressure was 11. Cardiac output 200 at mcg of adenosine was 8.76. Cardiac index was 4.29. Pulm onary vascular resistance was 10.54. There were no complications. In conclusion, pulmonary hyperten deondre with a mean pulmonary artery pressure of 41 mmHg with no significant response to adenosine chall enge. After the angiogram, she was taken to PCU for overnight observation, where she has done well. She has no complaints. Her right groin site is intact with no bleeding, induration, or pain. She d oes feel less fatigued this morning after the stent placement. She will follow up with Dr. Kirby as scheduled and Dr. Chacko in 1 week. At this time, she currently is stable for discharge. MEDICATIONS: She will go home on Demadex 40 mg twice daily, Zyrtec 10 mg daily as needed, losartan 1 00 mg daily, Motrin discontinued, Lamictal 250 mg at bedtime, spironolactone 25 mg daily, aspirin ent gilberto-coated 325, Lipitor 40 mg daily, Plavix 75 mg daily. ALLERGIES: She has no allergies to medications. PHYSICAL EXAMINATION: GENERAL: On day of discharge, she is feeling well. VITAL SIGNS: Blood press ure 110/76, heart rate 61 and regular. EKG shows normal sinus rhythm. Oxygen saturation 98%. HEART : Rate regular. No murmurs, rubs, gallops. LUNGS: Sounds are clear to auscultation. No wheezes, rales, or rhonchi. : Right groin site is intact with no bleeding, induration, or pain. No ecchym osis appreciated. EXTREMITIES: Bilateral lower extremity pulses are 2+ with no edema. See invasive cardiac procedure done on 03/06/2017 for complete information. PROCEDURES DONE: 1. Coronary artery angiography. 2. Left ventriculography. 3. Stenting of left anterior descending coronary artery with Synergy drug-eluting stent. 4. Fractional flow reserve of the left anterior descending coronary artery. 5. Right heart catheterization. 6. Adenosine challenge. INDICATION FOR TESTIN. Dyspnea on exertion concerning for potential anginal equivalent. 2. Pulmonary hypertension. CONCLUSION: 1. Single-vessel coronary artery disease involving left anterior descending coronary artery. 2. Normal left ventricular systolic function. 3. Status post successful stenting of the left anterior descending artery with Synergy drug-eluting stent. 4. Pulmonary hypertension with mean pulmonary artery pressure of 41 mmHg with no significant respons e to adenosine challenge. DISCHARGE PLAN: 1. She will follow up with Dr. Kirby and Dr. Naren Chacko as previously scheduled. 2. Groin site care instructions were provided verbally and written. Should she have any problems, s he is to call [facility]. 3. Right groin care for 7 days. No heavy lifting, pushing, pulling greater than 10 pounds. 4. No sitting in a tub of water for 7 days. Okay to shower. 5. Participate in cardiac rehabilitation. 6. Keep followup appointments with Dr. Kirby and Dr. Naren Chacko. At this time, she currently is stable for discharge. /[id number]/MODL
== END 2017-03-07 12:22 | disposition home or self-care (01) ==
LOC: FCATH 06:38 → F2W 11:23
PROVIDERS: ADMIT Internal Medicine Cardiovascular Disease; ATTEND Internal Medicine Cardiovascular Disease
PROC: 3E033XZ Introduction of Vasopressor into Peripheral Vein, Percutaneous Approach (ICD-10-PCS; principal; 2017-03-06)
PROC: B2111ZZ Fluoroscopy of Multiple Coronary Arteries using Low Osmolar Contrast (ICD-10-PCS; principal; 2017-03-06)
PROC: 027034Z Dilation of Coronary Artery, One Artery with Drug-eluting Intraluminal Device, Percutaneous Approach (ICD-10-PCS; principal; 2017-03-06)
PROC: 4A023N8 Measurement of Cardiac Sampling and Pressure, Bilateral, Percutaneous Approach (ICD-10-PCS; principal; 2017-03-06)
PROC: 4A1335C Monitoring of Arterial Flow, Coronary, Percutaneous Approach (ICD-10-PCS; principal; 2017-03-06)
PROC: B2151ZZ Fluoroscopy of Left Heart using Low Osmolar Contrast (ICD-10-PCS; principal; 2017-03-06)
DX: I25.10 Atherosclerotic heart disease of native coronary artery without angina pectoris (principal); I27.20 Pulmonary hypertension, unspecified; I50.9 Heart failure, unspecified; R53.83 Other fatigue; R06.02 Shortness of breath; I11.0 Hypertensive heart disease with heart failure; G47.33 Obstructive sleep apnea (adult) (pediatric); I47.1 Supraventricular tachycardia; F31.9 Bipolar disorder, unspecified; E66.9 Obesity, unspecified; Z68.31 Body mass index [BMI] 31.0-31.9, adult; Z87.891 Personal history of nicotine dependence; Z23 Encounter for immunization
CPT/HCPCS: C1725; C1760; C1769; C1874; C1887; C9600; G0008; G0378; J0153; J0461; J0583; J1644; J2060; J2250; J3010; Q9967

== ENCOUNTER 2017-04-13 07:45 | Observation (INO) | payer OTHER ==
--- NOTE | 2017-04-13 07:57 | EDPHY ---
H & P Stated Complaint: ? slipped on marble floor ~4am;hit head,+LOC;on plavix HPI/ROS: CHIEF COMPLAINT: Head injury, loss of consciousness. possible syncope HISTORY OF PRESENT ILLNESS: The patient is an anticoagulated 51 y/o female arriving with her son complaining of a head injury that occurred this morning around 04:20, 4 hours ago. She has significant cardiac history including SVT and had a stent placed one month ago during a diagnostic catheterization. This morning she woke up to let her cat out and remembers grabbing the banister. She then woke up on the tile floor lying between her bedroom and bathroom about 15- 20 minutes later. She is not sure if she tripped or fainted. She fell and lost consciousness under similar circumstances in December. She also fell 3 weeks ago while walking up the stairs and thinks she broke some ribs, but did not lose consciousness during that event. She currently complains of headache, neck pain , coccyx pain, and left ankle pain. She took a dose of Advil this morning for her headache. She denies confusion, changes in vision, weakness, numbness, back pain, abdominal pain. REVIEW OF SYSTEMS: A ten point review of systems was performed and is negative with the exception of the items mentioned in the HPI. Past medical history: Pulmonary hypertension, paroxysmal SVT status post ablation, hypertension, bipolar disorder, nocturnal hypoxemia Past surgical history: LAD cardiac stent place 5 weeks ago - on Plavix, ablation - Dr. Sparrow 06/26/16 Family history: noncontributory Social history: Employed as news analyst. Son at bedside. Seating Captain: Dr. Kirby , Pulmonology: Dr. Lomax Prior medical records reviewed including cardiac procedure note 06/26/16 and 03/06. General Appearance: Alert. Vital signs reviewed. Eyes: Pupils equal and round, no conjunctival injection, no discharge. Anicteric. Head: 1cm superficial laceration and hematoma to right parietal scalp. No palpable skull fracture. ENT, Mouth: No hemotympanum bilaterally. Mucous membranes are moist, no oropharyngeal erythema or edema. Neck: No lymphadenopathy, supple. Respiratory: Lungs are clear to auscultation; no wheezes, rales, or rhonchi. Cardiovascular: Regular rate and rhythm; no murmur, rub, or gallop. Gastrointestinal: Abdomen is soft and nontender, no masses or organomegaly, bowel sounds normal. Skin: Warm and dry, no rashes on exposed skin, normal color. Two small skin tears and bruising to distal left polanco. Back: Nontender to palpation over the thoracolumbar spine. No CVAT. Mild tenderness over coccyx. Extremities: No lower extremity edema, no calf tenderness or swelling. FAROM both ankles. Neurological: Alert and oriented. Moving all four extremities easily and equally. Cranial nerves II through XII are examined and are intact (visual acuity not tested). Strength is 5 over 5 bilaterally with testing of all major motor groups. Sensation is intact to light touch over all 4 extremities. Deep tendon reflexes are 2+ in the biceps and knees bilaterally. [id number] is performed accurately. Psychiatric: Normal affect. - Personal History LMP (Females 10-55): Unknown Current Tetanus Diphtheria and Acellular Pertussis (TDAP): Yes - Medical/Surgical History Hx Asthma: No Hx Chronic Respiratory Disease: No Hx Diabetes: No Hx Cardiac Disease: Yes Hx Renal Disease: No Hx Cirrhosis: No Hx Alcoholism: No Hx HIV/AIDS: No Hx Splenectomy or Spleen Trauma: No Other PMH: htn, svt, bipolar, sleep apnea, pulm htn, uterine ablation - Social History Smoking Status: Former smoker Constitutional: Initial Vital Signs Temperature (C) 36.5 C 04/13/17 07:45 Heart Rate 74 04/13/17 07:45 Respiratory Rate 16 04/13/17 07:45 Blood Pressure 102/75 04/13/17 07:45 O2 Sat (%) 98 04/13/17 07:45 O2 Delivery Mode Room Air Allergies/Adverse Reactions: No Allergies [NKA] Allergy (Verified 06/26/16 13:55) Home Medications: Medication Instructions Recorded Torsemide [Demadex] 40 mg PO BID 06/26/16 Cetirizine [ZyrTEC 10 mg (*)] 10 mg PO DAILY PRN 03/02/17 Losartan Potassium [Cozaar 50 mg 100 mg PO HS 03/02/17 (*)] lamoTRIgine [LamICTAL 100 MG (*)] 250 mg PO HS 03/02/17 Spironolactone [Aldactone 25 MG 25 mg PO DAILY 03/06/17 (*)] Atorvastatin Calcium [Lipitor 40 40 mg PO DAILY #30 tab 03/07/17 mg (*)] Clopidogrel Bisulfate [Plavix (*)] 75 mg PO HS 04/13/17 Acetaminophen [Tylenol 325mg (*)] 650 mg PO Q4HRS PRN tab 04/14/17 Medical Decision Making - Diagnostics EKG Interpretation: 12 lead EKG is interpreted in Trace master View by emergency department physician. Imaging: Discussed imaging studies w/ tanner rotary drum continuous process Radiologist, I viewed and interpreted images myself ED Course/Re-evaluation: This is a 51 y/o female who presents with a head injury after a sudden collapse 4 hours ago. She does not remember how she ended up on the floor. She has a small 1cm superficial laceration and hematoma on her right parietal scalp, mild coccyx tenderness, and bruising on her left distal polanco. No other obvious trauma noted. She has a normal neuro exam and a regular heart rate. I am concerned for a cardiac etiology to her apparent syncope, given her history of SVT status post ablation. She will also require a head CT to rule out intracranial process due head strike on anticoagulants and visible head trauma. Plan for cardiac work up including IV, labs, EKG. Coccyx x-ray ordered. Tech will perform wound care. The 12 lead EKG was interpreted by myself. Sinus rhythm. Rate 75. Similar to prior EKGs. See hard copy and/or "tracemaster" electronic copy for interpretation. BUN 34 and creatinine 1.9, which is worse than prior. On 03/07/17, BUN was 24 and creatinine 1.1. It is possible that she had a syncopal episode secondary to volume depletion. Hemoglobin and hematocrit are normal and I do not suspect ongoing blood loss. 1025: Consulted with Dr. Eubanks, chemical engineer. He will consult as needed during admission. No cardiac arrhythmia has been noted during her stay in the emergency department. Head CT is negative for intracranial injury. I reviewed the images. 1147: Spoke with hospitalist service. Dr. Merino accepts admission. Differential Diagnosis: Syncope including but not limited to vasovagal syncope, arrhythmia, dehydration , and blood loss. - Data Points Laboratory Results: Laboratory Results 04/13/17 08:47 04/13/17 08:47 Medications Given: Discontinued Medications Acetaminophen (Tylenol) 650 mg PO EDNOW ONE Stop: 04/13/17 09:51 Last Admin: 04/13/17 10:52 Dose: 650 mg Acetaminophen (Tylenol) 650 mg PO Q4HRS PRN PRN Reason: Pain, Mild/Fever, Can Take PO Stop: 10/10/17 11:15 Last Admin: 04/14/17 08:29 Dose: 650 mg Atorvastatin Calcium (Lipitor) 40 mg PO DAILY HERBER Stop: 10/11/17 08:59 Last Admin: 04/14/17 08:29 Dose: 40 mg Clopidogrel Bisulfate (Plavix) 75 mg PO HS HERBER Stop: 10/10/17 20:59 Last Admin: 04/13/17 20:07 Dose: 75 mg Sodium Chloride (Ns) 1,000 mls @ 100 mls/hr IV CONT HERBER Stop: 04/14/17 05:14 Last Admin: 04/14/17 03:34 Dose: 1,000 mls Lamotrigine (Lamictal) 250 mg PO HS HERBER Stop: 10/10/17 20:59 Last Admin: 04/13/17 20:08 Dose: 250 mg Lorazepam (Ativan) 0.5 mg PO BID PRN PRN Reason: Anxiety Stop: 10/10/17 12:49 Last Admin: 04/13/17 20:07 Dose: 0.5 mg Oxycodone HCl (Oxycodone Ir) 5 mg PO Q6H PRN PRN Reason: Pain, Severe Able to Take PO Stop: 04/23/17 12:50 Last Admin: 04/14/17 09:57 Dose: 5 mg Departure - Departure Disposition: [facility] Acute Clinical Impression: Syncope and collapse, Renal insufficiency Fall Qualifiers: Encounter type: initial encounter Qualified Code(s): W19.XXXA - Unspecified fall, initial encounter Left parietal scalp hematoma Qualifiers: Encounter type: initial encounter Qualified Code(s): S00.03XA - Contusion of scalp, initial encounter Scalp laceration Qualifiers: Encounter type: initial encounter Qualified Code(s): S01.01XA - Laceration without foreign body of scalp, initial encounter Condition: Fair Report Scribed for: Olive Roach Report Scribed by: Shasta Richter Date of Report: 04/13/17 Time of Report: 08:36 Physician Review and Approval Statement: 04/13/17 07:57 Portions of this note were transcribed by the senior medical director. I, Dr. Olive Roach, personally performed the history, physical exam, and medical decision- making; and confirmed the accuracy of the information in the transcribed note.
--- NOTE | 2017-04-13 08:45 | CPEKG ---
Heart Rate: 75 RR Interval: 800 P-R Interval: 168 QRSD Interval: 108 QT Interval: 416 QTC Interval: 465 P [place]: -5 QRS [place]: 108 T Wave [place]: -43 EKG Severity - ABNORMAL ECG - EKG Impression: SINUS RHYTHM EKG Impression: REPOL ABNRM, PROBABLE ISCHEMIA, DIFFUSE LEADS Electronically Signed By: Olive Roach 13-Apr-2017 15:25:13
[2017-04-13 08:56] LABS: % IMMATURE GRANULYOCYTES 0.4 % (0.0-1.1); ABSOLUTE IMMATURE GRANULOCYTES 0.04 10^3/uL (0.00-0.10); ADD DIFF? NO; ADD MORPH? NO; ADD SCAN? NO; ATYPICAL LYMPHOCYTE FLAG 0 (0-99); FRAGMENT RBC FLAG 0 (0-99); HEMATOCRIT 41.6 % (38.0-47.0); HEMOGLOBIN 15.1 g/dL (12.6-16.3); LEFT SHIFT FLG 0 (0-99); LIPEMIA HEMOLYSIS FLAG 90 (0-99); MEAN CELL HEMOGLOBIN 35.2 pg (27.9-34.1); MEAN CELL HEMOGLOBIN CONCENTR. 36.3 g/dL (32.4-36.7); MEAN PLATELET VOLUME 9.5 fL (8.7-11.7); PLATELET CLUMPS FLAG 20 (0-99); PLATELET COUNT 299 10^3/uL (150-400); RED BLOOD CELL COUNT 4.29 10^6/uL (4.18-5.33); RED CELL DISTRIBUTION WIDTH 12.1 % (11.5-15.2)
[2017-04-13 09:06] LABS: ANION GAP 16 mEq/L (8-16); CALCIUM 9.9 mg/dL (8.5-10.4); CARBON DIOXIDE 25 mEq/l (22-31); CHLORIDE 97 mEq/L (97-110); CREATININE 1.9 mg/dL (0.6-1.0); GLOMERULAR FILTRATION RATE 28; GLUCOSE 99 mg/dL (70-100); POTASSIUM 4.1 mEq/L (3.5-5.2); SODIUM 138 mEq/L (134-144)
[2017-04-13 09:18] LABS: TROPONIN I < 0.012 ng/mL (0.000-0.034)
[2017-04-13] MEDS ORDERED: ACETAMINOPHEN 325 MG TAB PO ONE (09:50)
[2017-04-13] MEDS ORDERED: ONDANSETRON 4 MG/2 ML VIAL IVP PRN ×2 (11:16→13:40)
[2017-04-13] MEDS ORDERED: ONDANSETRON DISINTEGRATING 4 MG TAB PO PRN ×2 (11:16→13:40)
[2017-04-13] MEDS ORDERED: CETIRIZINE 10 MG TAB PO PRN (12:51)
[2017-04-13] MEDS ORDERED: ACETAMINOPHEN 325 MG TAB PO PRN (13:40)
--- NOTE | 2017-04-13 14:16 | GHP ---
[f rep st] HISTORY AND PHYSICAL DATE OF ADMISSION: 04/13/2017 CHIEF COMPLAINT: Syncope. HISTORY OF PRESENT ILLNESS: A 51-year-old female with a history of coronary artery disease, status p ost drug-eluting stent to LAD 03/06/2017, pulmonary hypertension, bipolar, who had a syncopal episode this morning. She awoke without issue to let her cat out and remembers grabbing the banister. She then found herself lying on the tile floor, lying between her bedroom and the bathroom 15 minutes lat er. She is not sure if she tripped or fainted. She then felt blood on the back of her head. She fe ll and lost consciousness under similar circumstances in December. She also fell 3 weeks ago while [employer] up the stairs and broke some ribs, but did not lose consciousness at that time. In the emergenc y room, she complained of a headache, neck pain, coccyx pain, and left ankle pain, as well as right s houlder pain. She denied any prodromal shortness of breath, nausea, vomiting, palpitations, dizziness, lightheadedn ess, or clamminess. She does not exercise on a regular basis, but climbs the stairs at work. With t hat, she gets shortness of breath, but that is not new. No palpitations. No fevers, chills, or swea ts. No dysuria. REVIEW OF SYSTEMS: I completed a 10-point review of systems, negative, except as noted in HPI. PAST MEDICAL HISTORY: 1. Coronary artery disease with a drug-eluting stent to LAD in March 2017, pulmonary hypertension with RVSP of 41 mmHg on catheterization at the same time. 2. Bipolar. 3. Hypertension. 4. MAYA. 5. Pulmonary nodule. 6. SVT, status post ablation in June 2016. PAST SURGICAL HISTORY: Just a PCI and ablation. FAMILY HISTORY: Heart disease on maternal side of family, was not able to qualify. SOCIAL HISTORY: Lives in [place], works fund raising. Drinks 2-3 glasses of wine, which she says is quite a bit less than she used to. No alcohol. No tobacco or illicits. ALLERGIES: No known drug allergies. HOME MEDICATIONS: Losartan 100 mg q.h.s., atorvastatin 40 mg daily, spironolactone 25 mg daily, Plav ix 75, cetirizine as needed, Lamictal 250 q.h.s., torsemide 40 mg b.i.d. The patient has been compliant with her diuretics. She says she has been eating and drinking normall y. PHYSICAL EXAMINATION: VITAL SIGNS: Temperature 36.8, blood pressure 108/72, heart rate 85, respirat ion rate 14, 95% on room air. GENERAL: Mildly tearful, anxious, sitting in bed. HEENT: PERRLA, EO PA. Posterior laceration to the head with mild bleeding. This is superficial. CV: Regular rate an d rhythm. No murmurs, gallops, or rubs. Trace ankle edema. LUNGS: Clear. No crackles. ABDOMEN: Soft, nontender, nondistended. Positive bowel sounds. : No suprapubic tenderness. MUSCULOSKELE ROSEMARIE: 5/5 upper/lower extremity strength. NEURO: 2 through 12 intact. PSYCH: Alert and oriented x3 , anxious, tearful. LABORATORY DATA: WBC 10, hemoglobin 15, hematocrit 41, platelets 299. Sodium 138, potassium 4.1, ch loride 97, carbon dioxide 25, BUN 34. Creatinine is 1.9; baseline is 1.1. Glucose is 99, calcium 9.9 . Troponin less than 0.012. Sacrum/coccyx x-ray: No acute fracture. Head CT, right posterior parietal scalp hematoma. No acute bleed. EKG personally reviewed by me. T-wave inversions, inferior anterior leads, seen on prior but more pr ominent today. ASSESSMENT/PLAN: 1. Syncope: Differential, cardiac, ischemia, arrhythmia, dehydration. Initial EKG showing T-wave i nversions diffusely, but this is seen on prior. Troponin was negative. Will monitor on telemetry an d repeat both. Suspect dehydrated with acute kidney injury. Check a UA and urine lytes. Did have r ecent stent a month ago, so will monitor for arrhythmia. Will not repeat echocardiogram as had a car diac cath on March 17 showing normal LVEF. 2. Acute kidney injury: Creatinine is 1.9, likely due to diuretics and being on losartan at [facility] e time. Hold both of these, check a UA and urine lytes. Will likely give a small amount of fluids. 3. Moderate pulmonary hypertension: A recent catheterization demonstrated RVSP of 41 mmHg. Will ne ed to be cautious with volume status. 4. Obstructive sleep apnea. CPAP at night. 5. Pulmonary nodule. Follow up as an outpatient. 6. History of supraventricular tachycardia, status post ablation in June. 7. Bipolar: Continue Lamictal. 8. Diet: Regular. 9. DVT prophylaxis: Low risk. 10. Head laceration: This is superficial, probably Steri-Strips. CT was negative for acute bleed. DISPOSITION: Patient warrants observation admission given acute syncope, requiring telemetry. /[id number]/MODL
[2017-04-13 14:35] LABS: COLOR YELLOW; LEUKOCYTE ESTERASE,URINE NEGATIVE (NEGATIVE); NITRITE,URINE NEGATIVE (NEGATIVE)
[2017-04-13 14:56] LABS: HYALINE CASTS 15-25 /lpf (0-1); MUCUS TRACE /lpf (NONE-1+); RBC,URINE 15-25 /hpf (0-3)
[2017-04-13] MEDS: oxyCODONE IR 5 MG TAB PO PRN (15:23)
[2017-04-13] MEDS: LORazepam 0.5 MG TAB PO PRN ×2 (15:23→20:07)
--- NOTE | 2017-04-13 16:02 | ASMTCMCOM ---
CM Note CM Note Notes: Patient admitted after a syncopal episode at home. She is s/p LAD stenting in March. She was unable to go to cardiac rehab after this procedure. She lives at home with her cats but says she has many supportive friends. Her son lives locally and is a college student and her daughter lives in [place]. Discharge needs are TBD; TURFGRASS MANAGEMENT PROFESSOR eval is ordered and pending. Date Signed: 04/13/2017 04:02 PM Electronically Signed By:Ashley Fisher RN
[2017-04-13] MEDS: NS 1,000 ML IV SCH (17:19)
[2017-04-13] MEDS: ACETAMINOPHEN 325 MG TAB PO PRN (20:08)
[2017-04-13] MEDS ORDERED: CLOPIDOGREL BISULFATE 75 MG TAB PO SCH (21:00)
[2017-04-13] MEDS ORDERED: lamoTRIgine 100 MG TAB PO SCH (21:00)
[2017-04-14] MEDS: oxyCODONE IR 5 MG TAB PO PRN ×2 (00:08→09:57)
[2017-04-14] MEDS: NS 1,000 ML IV SCH (03:34)
[2017-04-14 05:18] LABS: HEMATOCRIT 36.3 % (38.0-47.0); HEMOGLOBIN 12.3 g/dL (12.6-16.3); MEAN CELL HEMOGLOBIN 34.4 pg (27.9-34.1); MEAN CELL HEMOGLOBIN CONCENTR. 33.9 g/dL (32.4-36.7); MEAN CELL VOLUME 101.4 fL (81.5-99.8); RED BLOOD CELL COUNT 3.58 10^6/uL (4.18-5.33); RED CELL DISTRIBUTION WIDTH 12.3 % (11.5-15.2)
[2017-04-14 05:30] LABS: ANION GAP 12 mEq/L (8-16); CALCIUM 8.9 mg/dL (8.5-10.4); CARBON DIOXIDE 24 mEq/l (22-31); CHLORIDE 103 mEq/L (97-110); CREATININE 1.6 mg/dL (0.6-1.0); GLOMERULAR FILTRATION RATE 34; GLUCOSE 92 mg/dL (70-100); POTASSIUM 4.1 mEq/L (3.5-5.2); SODIUM 139 mEq/L (134-144)
[2017-04-14 08:25] VITALS: TEMP 98.3
[2017-04-14] MEDS: ACETAMINOPHEN 325 MG TAB PO PRN (08:29)
[2017-04-14] MEDS ORDERED: NS 1,000 ML IV SCH (08:30)
[2017-04-14] MEDS ORDERED: ATORVASTATIN CALCIUM 40 MG TAB PO SCH (09:00)
[2017-04-14] MEDS ORDERED: ENOXAPARIN 40 MG/0.4 ML SYR SC SCH (09:00)
--- NOTE | 2017-04-14 11:01 | GCON ---
[f rep st] CONSULTATION CARDIOLOGY CONSULTATION REASON FOR CONSULTATION: We were asked by Dr. Merino of [facility] to evaluate this patient f or her episode of syncope. HISTORY OF PRESENT ILLNESS: The patient is a 51-year-old female, known to our practice for a history of SVT, status post AVNRT ablation in June 2016. She also has concomitant pulmonary hypertension . For this, she has seen Dr. Kirby, and her fountain operator is Dr. Tiburcio Lomax. She had a right and left heart catheterization in March for further workup of her dyspnea and CHF symptoms. On her le ft heart catheterization, she was found to have a mid LAD lesion that was 60% to 70%, and the lesion was found to be obstructive by FFR. She proceeded to PTCA and stenting with a Synergy drug-eluting s tent. On her right heart catheterization, she was found to have an RA pressure of 12, PA of 68/15 wi th a mean of 41, pulmonary capillary wedge pressure of 12, cardiac output of 4, and cardiac index of 1.9 L/min. She is also being worked up for sleep apnea with Dr. Lomax. Her syncopal episode occurred on . She had let her cat out at approximately 4 a.m. At 4:22 a.m., she was about to get up to let her cat back into the house. She had reached for her foot boar d, and the next thing she remembers is being on the floor. She reports waking up at 4:41 a.m. on the floor. She reached for the back of her head and discovered wetness. When she turned on the light, she found that she had blood on her hands. She called her children, and they brought her into the ED for further evaluation. She denies any antecedent palpitations or dizziness. She reports other epi sodes of having a syncopal episode. [id number]-[id number] months ago she was on the couch at around 9 p.m. S he does not recall getting up but then was on the floor. She denies any injury with that. She does note some episodes of dizziness. She has had some orthostatic symptoms in the past. She denies any chest pain, PND, or orthopnea. PAST MEDICAL HISTORY: 1. CAD, status post PTCA and stenting in March 2017. 2. Bipolar disorder. 3. Hypertension. 4. MAYA, being trialed with CPAP. 5. AVNRT ablation in June 2016. 6. Pulmonary hypertension with a mean of 41 by right heart catheterization. FAMILY HISTORY: There is heart disease on the maternal side of her family. SOCIAL HISTORY: Patient lives in [place]. She works in [employer]. She is . She reports 2-3 glasses of wine nightly. She is a former smoker, having quit in 1981. ALLERGIES: No known drug allergies. OUTPATIENT MEDICATIONS: Listed as Advil 400 mg daily, spironolactone 25 mg p.o. daily, atorvastatin 40 mg p.o. daily, Lamictal 250 mg p.o. daily, losartan 100 mg p.o. daily, torsemide 40 mg p.o. b.i.d. , multivitamin, aspirin, and Plavix. REVIEW OF SYSTEMS: As per HPI. A complete 10-point review of systems was obtained and is negative e xcept for what is dictated. PHYSICAL EXAMINATION: VITAL SIGNS: BP of 113/72, heart rate of 76. On orthostatics, her sitting bl ood pressure was 111/89, heart rate of 86 AND on standing her blood pressure WAS 123/82 with a heart rate of 80. GENERAL: A very pleasant female in no apparent distress. HEENT: Eyes without scleral icterus. Mucous membranes are moist. Hearing normal. HEART: Regular rate and rhythm with no rubs, gallops, or murmurs. LUNGS: Clear. ABDOMEN: Soft with normoactive bowel sounds. SKIN: Warm and dry. PSYCH: Normal mood and affect. NEURO: Awake and alert and oriented x3. DIAGNOSTICS: Telemetry reviewed shows sinus rhythm with some sinus arrhythmia present. There was a 14-beat run of SVT at 5:29 a.m. and at 5:21 a.m., She had a 17-beat run of SVT. LABORATORY DATA: CBC with WBC 7.39, hemoglobin 12.3, hematocrit 36.3, platelet count of 245. BMP wi th sodium of 139, potassium 4.1, chloride 103, CO2 24, BUN 31, creatinine 1.6, of 0.012 an d 0.012. A 12-lead ECG, personally interpreted, demonstrates sinus rhythm with a normal interval. There are d iffuse T-wave abnormalities across the precordium, and she has a rightward axis. This is unchanged f rom a previous ECG. Sacrum and coccyx x-ray reviewed shows no fracture present. Head CT shows a rig ht posterior parietal scalp hematoma. I spoke with Dr. Merino on patient's care. IMPRESSION AND PLAN: The patient is a 51-year-old female, who presents after a syncopal episode. 1. Syncope with injury: Likely vasovagal given the evidence of some acute kidney injury from possib ly over-diuresis. She is advised to decrease her losartan or altogether hold it and monitor her bloo d pressure. We will adopt the latter strategy and just hold her losartan. She will proceed to -thu live telemetry. This has been ordered for her. 2. Acute kidney injury: Her creatinine was as high as 1.9; with hydration, her creatinine is now 1. 6. We will have her hold her diuretics for the next couple days and resume at current dosing. She w ould like to stay at the current dose as she feels more bloated at lower doses. She is also advised to stop taking ibuprofen. 3. Supraventricular tachycardia: On her ablation, she had atrioventricular taj re-entrant tachyca rdia as well as an atrial tachycardia. This is likely not the etiology of her syncope; however, we w ill proceed to monitoring to make sure that she does not have prolonged arrhythmias. 4. Diastolic congestive heart failure with pulmonary hypertension. She is followed by both Dr. Marcelo hanna and Dr. Lomax for this. She will be scheduled for outpatient followup with Dr. Kirby to discuss re sults of her Holter and ensure that medication changes are appropriate. /[id number]/MODL
[2017-04-14 11:14] VITALS: BP 111/65; PULSE 67; RESP 13; O2SAT 94
--- NOTE | 2017-04-14 15:43 | ASDISCHSUM ---
Discharge Information Plan Status:Home with No Needs Medically Cleared to Leave:04/13/2017 Discharge Date:04/14/2017 01:15 PM CM D/C Disposition:Home, Routine, Self-Care ADT D/C Disposition:Home, Routine, Self-Care Projected Discharge Date:04/14/2017 01:15 PM Transportation at D/C:Family Discharge Delay Reason: Follow-Up Date:04/14/2017 01:15 PM Discharge Slot: Final Diagnosis: Placement Information Patient Contact Information Contact Name:RODRICK Relationship:Father Address:[address] [place] [address] [place]:[facility] Alternate Phone: State/Zip Code:[place] [address] Email: Financial Information Financial Class:Ada Boudreaux Primary Plan Desc:ADA BELLO Primary Plan Number:[id number] Secondary Plan Desc: Secondary Plan Number: Assessment Information [facility] CM Progress Note CM Note CM Note Notes: Patient admitted after a syncopal episode at home. She is s/p LAD stenting in March. She was unable to go to cardiac rehab after this procedure. She lives at home with her cats but says she has many supportive friends. Her son lives locally and is a college student and her daughter lives in [place]. Discharge needs are TBD; ANIMAL CONTROL SUPERVISOR eval is ordered and pending. Date Signed: 04/13/2017 04:02 PM Electronically Signed By:Ashley Fisher RN Intervention Information
--- NOTE | 2017-04-14 16:57 | GDS ---
[f rep st] DISCHARGE SUMMARY DISCHARGE DIAGNOSES: 1. Syncope. 2. Supraventricular tachycardia. 3. Coronary artery disease: Left anterior descending stent in March 2017. 4. Pulmonary hypertension. 5. Bipolar. 6. Hypertension. 7. Obstructive sleep apnea. 8. History of supraventricular tachycardia with ablation June 2016. 9. Diastolic heart failure. HISTORY OF PRESENT ILLNESS: A pleasant 51-year-old female with a history of SVT , status post ablation June 2016 and CAD with a PCI to the LAD in March, presenting after syncopal event. She awoke to take her cat out and the last thing she remembers was grabbing on the banister. She awoke on the tile floor 10-15 minutes later. Noted blood and pain in the back of her head. She denied prodromal chest pain, palpitations, shortness of breath, nausea, vomiting, or diaphoresis. HOSPITAL COURSE BY PROBLEM: 1. Syncope with subsequent head laceration: No evidence of intracranial bleed. Suspect this is secondary to dehydration. Patient's creatinine was elevated at 1.9, and urine lytes were consistent with prerenal. She was hydrated here. EKG and troponin negative for ischemia. I did not repeat echo, given this was done a month ago. Will have patient hold losartan and diuretics until followup BMP on . 2. REYNA: Again, secondary to diuretics as well as well losartan. Repeat BMP on . Could consider decreasing losartan dose to 25 mg daily. Patient also reports taking Advil 2 tabs daily every night for years for no apparent reason. She was advised to avoid any NSAIDs, as this likely contributed. 3. SVT: Tele did show tachycardia. Do not suspect this is the root of her syncopal episode. Cardiology will have 30-day outpatient monitoring done. 4. Compensated diastolic heart failure and pulmonary hypertension: She is followed by Dr. Kirby. She will follow up with him to discuss her Holter results and medication changes. 5. History of seizures: This was brought up to me at the time of discharge by speech therapy. They are recommending outpatient speech cognition therapy. I provided a prescription. DISPOSITION: Patient is stable for discharge home. MEDICATIONS: Hold losartan, Aldactone, and torsemide until BMP on . FOLLOWUP: 1. Dr. Efren Kirby MD. 2. Primary care physician. 3. Can make outpatient appointment with Neurology for history of seizures. 4. BMP on 04/16/2017. PHYSICAL EXAMINATION: VITAL SIGNS: Today, temperature 36.8, blood pressure 111 /65, heart rate 60, respiration 13, 94% on room air. GENERAL: Mildly tearful, but no distress. HEENT: PERRLA. EOMI. Oropharynx clear. Posterior scalp laceration that is superficial. CV: Regular rate and rhythm. No murmurs, gallops, or rubs. LUNGS: Clear to auscultation bilaterally. ABDOMEN: Soft, nontender, nondistended. Positive bowel sounds. : No suprapubic tenderness. MUSCULOSKELETAL: 5/5 upper and lower extremity strength. NEURO: 2 through 12 intact. PSYCH: Alert and oriented x3. /[id number]/MODL MTDD
== END 2017-04-14 13:15 | disposition home or self-care (01) ==
LOC: F2W 11:55
PROVIDERS: ADMIT Internal Medicine; ATTEND Internal Medicine
DX: R55 Syncope and collapse (principal); I47.1 Supraventricular tachycardia; I25.10 Atherosclerotic heart disease of native coronary artery without angina pectoris; I27.20 Pulmonary hypertension, unspecified; F31.9 Bipolar disorder, unspecified; I11.0 Hypertensive heart disease with heart failure; I50.30 Unspecified diastolic (congestive) heart failure; G47.33 Obstructive sleep apnea (adult) (pediatric); Z87.891 Personal history of nicotine dependence
CPT/HCPCS: 92523-GN; G0378